=== PATIENT | female | born 1975 | race African-American/Black ===

== ENCOUNTER 2017-02-14 10:16 | Emergency (ER) | payer SELFPAY ==
[~2017-02-14] VITALS: Ht 175.3 cm; Wt 117.0 kg
[2017-02-14 10:25] VITALS: BP 134/67; PULSE 82; RESP 14; TEMP 98.3; O2SAT 99
--- NOTE | 2017-02-14 11:15 | PD ---
HPI Chief Complaint: Fall Time Seen by Provider: 11:00 Travel History International Travel<30 days: No Contact w/Intl Traveler<30days: No Traveled to known affect area: No History of Present Illness HPI 41-year-old female presents to the emergency room for evaluation of right posterior hip and left proximal forearm pain after slip and fall yesterday. Patient slipped on the wet floor and fell backwards. She states it happened very fast that she believes she landed on her right buttocks. She thinks she struck her arm on the concrete wall. Patient reports moderate pain in the arm. She is more concerned about her hip pain. She denies hitting her head, loss of consciousness, upper or lower extremity paresthesias, loss of bowel or bladder control, saddle anesthesia. Pain is worsened with movement. States it is worse today than it was yesterday. She took Tylenol and Motrin last night without significant relief in symptoms. Denies chronic medical conditions or daily medications. PFSH Past Medical History ?: Not LMP: Now Social History Tobacco Use: No Allergies-Medications (Allergen,Severity, Reaction): Coded Allergies: No Known Allergies (Unverified , 02/14/17) Reported Meds & Prescriptions Reported Meds & Active Scripts Active No Active Prescriptions or Reported Medications Review of Systems Except as stated in HPI: all other systems reviewed are Neg Physical Exam Narrative GENERAL: Well-nourished, well-developed female in no acute distress. Afebrile. Ambulatory. SKIN: Focused skin assessment warm/dry. No erythema or ecchymosis on the right buttocks or posterior hip. There is a large area of ecchymosis and a superficial abrasion to the left lateral forearm. HEAD: Normocephalic. EYES: No scleral icterus. No injection or drainage. NECK: Supple, trachea midline. No JVD or lymphadenopathy. CARDIOVASCULAR: Regular rate and rhythm without murmurs, gallops, or rubs. RESPIRATORY: Breath sounds equal bilaterally. No accessory muscle use. EXTREMITY: Left arm tender to palpation over the contusion. Mild tenderness to palpation over the right posterior hip/buttocks. Radial, ulnar, and median nerves intact. 2+ radial pulse. 2+ dorsalis pedis pulse in the right leg. Full range of motion in all joints of upper and lower extremities. Strength 5/5 and equal in upper and lower extremities. Mild edema over the left proximal forearm. No noticeable edema over the right hip. Data Data Last Documented VS Vital Signs Date Time Temp Pulse Resp B/P Pulse Ox O2 Delivery O2 Flow Rate FiO2 02/14/17 10:25 98.3 82 14 134/67 99 Orders Pelvis, Ap Only (Routine) (02/14/17 ) MDM Medical Decision Making Medical Screen Exam Complete: Yes Emergency Medical Condition: Yes Medical Record Reviewed: Yes Differential Diagnosis Contusion, fracture, sprain, strain Narrative Course 41-year-old female presents to the emergency room for evaluation of right posterior hip/buttocks pain and left proximal forearm pain after slip and fall yesterday. Patient denies hitting her loss of consciousness. Denies any other injuries. States pain is worse today than it was yesterday. Physical exam reveals mild edema and tenderness to palpation over a large area of ecchymosis of the left proximal forearm. There is no bony tenderness to palpation. Left upper extremity is neurovascularly intact. There is tenderness to palpation of the right posterior hip/buttock. Right lower extremity is neurovascularly intact with 2+ dorsalis pedis pulse. Patient has been ambulatory since injury. Strength 5/5 and equal in upper and lower extremities. X-ray of the pelvis shows no acute bony abnormality. This is contusion. Patient discharged with prescription strength ibuprofen and told to follow-up with a primary care physician or return for worsening symptoms. [facility] agrees to plan. Diagnosis Primary Impression: Contusion of right hip Qualified Code: S70.01XA - Contusion of right hip, initial encounter Additional Impression: Contusion of left lower arm Qualified Code: S50.12XA - Contusion of left lower arm, initial encounter Referrals: Primary Care Physician Patient Instructions: Contusion in Adults (ED), General Instructions Additional Instructions: Rest and drink plenty of fluids. Take ibuprofen with food as directed, as needed for pain. Apply ice to the affected area for 20 minutes at a time, as needed for pain and swelling. Follow-up with a primary care physician. Return to the emergency room for worsening symptoms. Med/Other Pt SpecificInfo: Prescription(s) given Scripts Ibuprofen 600 Mg Cum089 Mg PO Q8H PRN (PAIN) #21 TAB Ref 0 Prov:Mikael Galdamez MD 02/14/17 Disposition: 01 DISCHARGE HOME Condition: Stable Miya White Feb 14, 2017 11:15 Miya White Feb 14, 2017 11:15
--- NOTE | 2017-02-14 11:48 | RADRPT ---
EXAM DATE/TIME: 02/14/2017 11:21 [facility] COMPARISON: No previous studies available for comparison. INDICATIONS : Fell, has pelvic area pain MEDICAL HISTORY : None. SURGICAL HISTORY : None. ENCOUNTER: Initial ACUITY: 2 days PAIN SCORE: 9/10 LOCATION: Bilateral pelvis FINDINGS: A single frontal view of the pelvis demonstrates no evidence of fracture. The bony pelvic ring is in tact. Bony mineralization is normal. The soft tissues are intact. CONCLUSION: Normal examination for a patient of this age. Willy Gonzalez MD on February 14, 2017 at 11:45 Board Certified Radiologist. This report was verified electronically.
[2017-02-14] MEDS ORDERED: IBUP-232 PO (11:52)
== END 2017-02-14 12:00 | disposition home or self-care (01) ==
LOC: PHEFT 10:16
DX: S70.01XA Contusion of right hip, initial encounter (principal); S50.12XA Contusion of left forearm, initial encounter; W01.0XXA Fall on same level from slipping, tripping and stumbling without subsequent striking against object, initial encounter; Y93.9 Activity, unspecified; Y92.9 Unspecified place or not applicable; Y99.9 Unspecified external cause status
CPT/HCPCS: 72170; 99283

== ENCOUNTER 2017-06-07 15:29 | Emergency (ER) | payer SELFPAY ==
[~2017-06-07] VITALS: Ht 175.3 cm; Wt 119.0 kg
[~2017-06-07 15:29] MED LIST: IBUP-232 PO
[2017-06-07 15:45] VITALS: BP 155/95; PULSE 90; RESP 16; TEMP 99.3; O2SAT 99
[2017-06-07] MEDS ORDERED: DEXAMETHASONE SOD PHOS 4 MG/ML VIAL IM ONE (16:45)
[2017-06-07] MEDS ORDERED: CLINDAMYCIN INJ 900 MG in SODIUM CHLORIDE 0.9% INJ 100 ML IV ONE (16:45)
[2017-06-07] MEDS ORDERED: SODIUM CHLOR 0.9% 1000 ML INJ 1,000 ML IV ONE (16:45)
[2017-06-07] MEDS ORDERED: LIDOCAINE VISCOUS 2% SOLN 15 ML UDC PO ONE (16:45)
[2017-06-07] MEDS ORDERED: KETOROLAC TROMETHAMINE 30 MG/ML (IVP) VIAL IV PUSH ONE (16:45)
--- NOTE | 2017-06-07 16:47 | PD ---
HPI Chief Complaint: Cold / Flu Symptoms Time Seen by Provider: 16:25 Travel History International Travel<30 days: No Contact w/Intl Traveler<30days: No Traveled to known affect area: No History of Present Illness HPI Patient is a 42 yo female presenting with 1 day of right ear pain and odynophagia. The patient states that she is feeling feverish and has a mild cough. She denies sputum or exudates with the cough. Denies SOB, Chest pain, diarrhea, nausea, vomiting, and abdominal pain. She reveals she has had a couple of cases of strep throat in the past. [facility] Past Medical History Medical History: Denies Significant Hx Hx Anticoagulant Therapy: No Diabetes: No Diminished Hearing: No Immunizations Current: Yes ?: Not Past Surgical History Surgical History: No Previous Surgery Social History Alcohol Use: No Tobacco Use: No Substance Use: No Allergies-Medications (Allergen,Severity, Reaction): Coded Allergies: No Known Allergies (Unverified , 06/07/17) Reported Meds & Prescriptions Reported Meds & Active Scripts Active No Active Prescriptions or Reported Medications Physical Exam Narrative GENERAL: Uncomfortable laying on the bed. Patient's spouse accompanies her. SKIN: Warm and dry. HEAD: Atraumatic. Normocephalic. EYES: Pupils equal and round. No scleral icterus. No injection or drainage. ENT: Right Tympanic membrane erythematous. Tolerating secretions. + Unilateral hypertrophy/erythema with exudate. Submandibular lymph nodes are swollen and tender on palpation bilaterally. NECK: Trachea midline. No JVD. CARDIOVASCULAR: Regular rate and rhythm. RESPIRATORY: No accessory muscle use. Clear to auscultation. Breath sounds equal bilaterally. GASTROINTESTINAL: Abdomen soft, non-tender, nondistended. Hepatic and splenic margins not palpable. MUSCULOSKELETAL: Extremities without clubbing, cyanosis, or edema. No obvious deformities. NEUROLOGICAL: Awake and alert. No obvious cranial nerve deficits. Motor grossly within normal limits. Five out of 5 muscle strength in the arms and legs. Normal speech. PSYCHIATRIC: Appropriate mood and affect; insight and judgment normal. Data Data Last Documented VS Vital Signs Date Time Temp Pulse Resp B/P (MAP) Pulse Ox O2 Delivery O2 Flow Rate FiO2 06/07/17 17:02 99.7 87 16 165/81 (109) 99 Room Air VS reviewed Orders Orders Basic Metabolic Panel (Bmp) (06/07/17 16:37) Complete Blood Count With Diff (06/07/17 16:37) Iv Access Insert/Monitor (06/07/17 16:37) Clindamycin Inj (Cleocin Inj) (06/07/17 16:45) Dexamethasone Inj (Decadron Inj) (06/07/17 16:45) Ct Soft Tiss Neck W/O Iv Cont (06/07/17 ) Sodium Chlor 0.9% 1000 Ml Inj (Ns 1000 M (06/07/17 16:45) Ketorolac Inj (Toradol Inj) (06/07/17 16:45) Lidocaine 2% Viscous (Xylocaine 2% Visco (06/07/17 16:45) Labs Laboratory Tests Test 06/07/17 17:00 White Blood Count 15.3 TH/MM3 Red Blood Count 4.14 MIL/MM3 Hemoglobin 11.7 GM/DL Hematocrit 35.2 % Mean Corpuscular Volume 84.8 FL Mean Corpuscular Hemoglobin 28.2 PG Mean Corpuscular Hemoglobin Concent 33.2 % Red Cell Distribution Width 13.2 % Platelet Count 293 TH/MM3 Mean Platelet Volume 8.7 FL Neutrophils (%) (Auto) 77.9 % Lymphocytes (%) (Auto) 13.9 % Monocytes (%) (Auto) 7.2 % Eosinophils (%) (Auto) 0.7 % Basophils (%) (Auto) 0.3 % Neutrophils # (Auto) 12.0 TH/MM3 Lymphocytes # (Auto) 2.1 TH/MM3 Monocytes # (Auto) 1.1 TH/MM3 Eosinophils # (Auto) 0.1 TH/MM3 Basophils # (Auto) 0.0 TH/MM3 CBC Comment DIFF FINAL Differential Comment Blood Urea Nitrogen 10 MG/DL Creatinine 0.72 MG/DL Random Glucose 89 MG/DL Calcium Level 8.5 MG/DL Sodium Level 138 MEQ/L Potassium Level 3.6 MEQ/L Chloride Level 101 MEQ/L Carbon Dioxide Level 29.6 MEQ/L Anion Gap 7 MEQ/L Estimat Glomerular Filtration Rate 108 ML/MIN [facility] Medical Decision Making Medical Screen Exam Complete: Yes Emergency Medical Condition: Yes Differential Diagnosis [employer], RPA, strep throat, neoplasia, Lemiere's disease Narrative Course CBC & BMP Diagram 06/07/17 17:[address] neck: R tonsillar hypertrophy without abscess Pt reports feeling better at 659PM. CT shows no abscess. Clinda, Decadron and viscous lido given with good effect. DC home with Clinda. Strict return precautions discussed. Pt verbalized understanding. Diagnosis Primary Impression: Pharyngitis Qualified Codes: J02.0 - Streptococcal pharyngitis Additional Impression: Tonsillar hypertrophy, unilateral Additional Instructions: You have a choice when it comes to health care, and we are glad that you chose [facility]. Hopefully, we have met your expectations on today's visit. You are welcome to return to [facility] at any time, as we are committed to meeting the health care needs of our community. Med/Other Pt SpecificInfo: Prescription(s) given Scripts Hydrocodone-Acetaminophen Liq (Lortab Liq) 10-300 Mg/15 Ml Elix 15 ML PO Q6H Y for PAIN SCALE 6 TO 10 for 3 Days, #180 ML 0 Refills Prov: Tani Khan MD 06/07/17 Clindamycin (Clindamycin) 150 Mg Cap 450 MG PO Q8HR for Infection, #10 CAP 0 Refills Prov: Tani Khan MD 06/07/17 Disposition: 01 DISCHARGE HOME Condition: Stable Tani Khan MD Jun 07, 2017 16:47
[2017-06-07 17:02] VITALS: BP 165/81; PULSE 87; RESP 16; TEMP 99.7; O2SAT 99
[2017-06-07 17:21] LABS: BASOPHIL % 0.3 % (0.0-2.0); EOSINOPHIL # 0.1 TH/MM3 (0-0.4); EOSINOPHIL % 0.7 % (0.0-4.0); HEMATOCRIT 35.2 % (35.0-46.0); LYMPH % 13.9 % (9.0-44.0); LYMPHOCYTE # 2.1 TH/MM3 (1.0-4.8); MEAN CELL VOLUME 84.8 FL (80.0-100.0); MEAN CORPUSCULAR HEMOGLOBIN 28.2 PG (27.0-34.0); MEAN CORPUSCULAR HGB CONC 33.2 % (32.0-36.0); MONO % 7.2 % (0.0-8.0); NEUT % 77.9 % (16.0-70.0); PLATELET COUNT 293 TH/MM3 (150-450); RED BLOOD COUNT 4.14 MIL/MM3 (4.00-5.30); RED CELL DISTRIBUTION WIDTH 13.2 % (11.6-17.2); WHITE BLOOD COUNT 15.3 TH/MM3 (4.0-11.0)
[2017-06-07 17:28] LABS: HEMO FLAGS DIFF FINAL; POTASSIUM 3.6 MEQ/L (3.5-5.1)
[2017-06-07 17:32] LABS: BICARBONATE 29.6 MEQ/L (21.0-32.0)
--- NOTE | 2017-06-07 18:36 | RADRPT ---
EXAM DATE/TIME: 06/07/2017 17:54 [facility] COMPARISON: No previous studies available for comparison. INDICATIONS : Sore throat and difficulty RADIATION DOSE: 13.77 CTDIvol (mGy) MEDICAL HISTORY : None SURGICAL HISTORY : None. ENCOUNTER: Initial ACUITY: 2 days PAIN SCORE: 8/10 LOCATION: throat TECHNIQUE: Volumetric scanning of the neck was performed. Using automated exposure control and adjustment of th e mA and/or kV according to patient size, radiation dose was kept as low as reasonably achievable to obtain optimal diagnostic quality images. DICOM format image data is available electronically for re view and comparison. FINDINGS: NASOPHARYNX: The nasopharyngeal airway has a normal configuration. No mucosal thickening or mass is seen. OROPHARYNX: The intrinsic muscles of the tongue are symmetric. Significant soft tissue fullness is identified in in the right tonsillar pillar. There is no evidence of organized fluid collection to suggest an absce ss. The prevertebral soft tissues are not thickened. LARYNX: The supraglottic, glottic, and infraglottic structures are intact. PARAPHARYNGEAL: The parapharyngeal space is intact. SALIVARY GLANDS: The parotid and submandibular glands are intact. LYMPH NODES: Right internal jugular lymphadenopathy with leydi size ranging up to 1.8 cm. Small submental and subm andibular lymph nodes are also present. THYROID: Homogeneous enhancement without evidence of nodule. BONES: Unremarkable. CONCLUSION: 1. Enlarged right tonsil without evidence of organized fluid collection or abscess. 2. Right-sided cervical lymphadenopathy 3. No other significant abnormality. Satnam Morris MD on June 07, 2017 at 18:31 Board Certified Radiologist. This report was verified electronically.
[2017-06-07] MEDS ORDERED: CLIN1CAP5 PO (18:57)
[2017-06-07] MEDS ORDERED: HYDR1ELX PO (18:58)
[2017-06-07 19:08] VITALS: BP 129/74; PULSE 92; RESP 20; O2SAT 99
[2017-06-07 19:20] VITALS: BP 129/74; TEMP 98.9
== END 2017-06-07 19:41 | disposition home or self-care (01) ==
LOC: PHED 15:29
DX: J02.0 Streptococcal pharyngitis (principal); J35.1 Hypertrophy of tonsils; H92.01 Otalgia, right ear
CPT/HCPCS: 70490; 80048; 85025; 96361; 96365; 96372; 96375; 99285; J1100; J1885; J7030